=== PATIENT | male | born 1950 | race Caucasian/White ===

== ENCOUNTER 2021-11-08 12:28 | Emergency (ER) | payer MEDICARE ==
[~2021-11-08] VITALS: Ht 167.7 cm; Wt 72.6 kg
[2021-11-08 13:14] LABS: BASOPHILS % (AUTO) 0 % (0-10); EOSINOPHILS # (AUTO) 0.2 10^3/uL (0.0-0.3); EOSINOPHILS % (AUTO) 1 % (0-10); HEMATOCRIT 45 % (40-54); HEMOGLOBIN 14.3 g/dL (13.3-17.7); LYMPHOCYTES # (AUTO) 1.7 10^3/uL (1.0-4.0); LYMPHOCYTES % (AUTO) 14 % (12-44); MEAN CORPUSCULAR HEMOGLOBIN 28 pg (25-34); MEAN CORPUSCULAR HGB CONC 32 g/dL (32-36); MEAN CORPUSCULAR VOLUME 86 fL (80-99); MEAN PLATELET VOLUME 9.4 fL (9.0-12.2); MONOCYTES # (AUTO) 0.9 10^3/uL (0.0-1.0); MONOCYTES % (AUTO) 8 % (0-12); NEUTROPHILS # (AUTO) 9.4 10^3/uL (1.8-7.8); NEUTROPHILS % (AUTO) 77 % (42-75); PLATELET COUNT 417 10^3/uL (130-400); WHITE BLOOD COUNT 12.3 10^3/uL (4.3-11.0)
[2021-11-08] MEDS ORDERED: NS IV 1000 ML 1,000 ML IV SCH (13:15)
[2021-11-08 13:34] LABS: ALANINE AMINOTRANSFERASE 16 U/L (0-55); ALBUMIN 4.6 GM/DL (3.2-4.5); ALKALINE PHOSPHATASE 112 U/L (40-136); BILIRUBIN,TOTAL 0.5 MG/DL (0.1-1.0); BUN/CREATININE RATIO 10; CALCIUM 9.6 MG/DL (8.5-10.1); CARBON DIOXIDE 26 MMOL/L (21-32); CHLORIDE 105 MMOL/L (98-107); CREATININE SERUM 1.16 MG/DL (0.60-1.30); GFR ESTIMATED 67; GLUCOSE 128 MG/DL (70-105); SODIUM 144 MMOL/L (135-145); TOTAL PROTEIN 7.4 GM/DL (6.4-8.2)
--- NOTE | 2021-11-08 13:58 | Diagnostic Imaging Report ---
PROCEDURE: CT head without contrast. TECHNIQUE: Multiple contiguous axial images were obtained through the brain without the use of intravenous contrast. Auto Exposure Controls were utilized during the CT exam to meet ALARA standards for radiation dose reduction. INDICATION: Near syncope. COMPARISON: None available. FINDINGS: CT of the head demonstrates no evidence of an acute intracranial abnormality. There is no evidence of intracranial hemorrhage. There is no extra-axial fluid collection, mass effect or shift. Sharp and white matter differentiation appear preserved. There is no abnormal hypodensity within the basal ganglia. The ventricles are appropriate in size and configuration. There is no evidence of hydrocephalus. The basilar cisterns are patent. The posterior fossa is unremarkable. Mastoids and visualized paranasal sinuses appear clear. Orbital contents are unremarkable. There is no calvarial abnormality. IMPRESSION: 1. No CT evidence of an acute intracranial abnormality. Dictated by: Dictated on workstation # [id number]
--- NOTE | 2021-11-08 13:59 | Diagnostic Imaging Report ---
INDICATION: Near syncope. COMPARISON: None available. FINDINGS: The lungs appear clear without focal airspace opacities or consolidation. There are no findings of an effusion. There is no evidence of a pneumothorax. Heart size and mediastinal contours appear appropriate. Pulmonary vascularity appears within normal limits. There is no acute or suspicious osseous abnormality demonstrated. IMPRESSION: No radiographic evidence of an acute cardiopulmonary process. Dictated by: Dictated on workstation # [id number]
[2021-11-08 14:00] VITALS: BP_SYST 102; BP_SYST 105; BP_SYST 114; BP_DIAS 67; BP_DIAS 68; BP_DIAS 74
--- NOTE | 2021-11-08 15:04 | ED Syncope ---
General Chief Complaint: Dizziness/Syncope Stated Complaint: NEAR SYNCOPE Nursing Triage Note: Patient states he started mowing around 10 am today. He reports at 12 pm he suddenly felt as though he were going to pass out. Source of Information: Patient History of Present Illness Date Seen by Provider: Nov 08, 2021 Time Seen by Provider: 12:55 Initial Comments 71-year-old male patient with history of GERD and BPH brought in [facility] with complaining of near syncopal episode. Patient states he started mowing grass around 10 AM and around 1200 while talking with a friend felt flushed and li ghtheadedness without chest pain, shortness of breath, focal neurodeficit. Patient states he was able to sit down without having any fall and for couple minutes he was dizzy that resolved spontaneously without loss of consciousness. Patient states he had the same problem previously and was told he had vasovagal reaction. Patient's friend stated that he did not have a fall or loss of consciousness but was weak for few minutes and they decided to bring him to the emergency room. Allergies and Home Medications Allergies Coded Allergies: No Known Drug Allergies (Unverified , 11/08/21) Patient Home Medication List Home Medication List Reviewed: Yes Review of Systems Constitutional: weakness EENTM: no symptoms reported Respiratory: no symptoms reported Cardiovascular: see HPI Gastrointestinal: no symptoms reported Genitourinary: no symptoms reported Musculoskeletal: no symptoms reported Skin: no symptoms reported Psychiatric/Neurological: See HPI All Other Systems Reviewed Negative Unless Noted: Yes Past Zjhfhgt-Vubumm-Fqiihk Hx Patient Social History Tobacco Use?: No Substance use?: No Alcohol Use?: No Pt feels they are or have been: No Immunizations Up To Date 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 oz. kg; 25.00 BMI Method: General Appearance: No Apparent Distress HEENT: PERRL/EOMI, Normal ENT Inspection Neck: Full Range of Motion, Normal Inspection Cardiovascular: Regular Rate, Rhythm, No Edema, No Murmur, Normal Peripheral Pulses Respiratory: Chest Non Tender, Lungs Clear, Normal Breath Sounds, No Accessory Muscle Use, No Respiratory Distress Gastrointestinal: Normal Bowel Sounds, Non Tender, Soft Back: Normal Inspection Extremities: Normal Capillary Refill, Normal Inspection, Normal Range of Motion, Non Tender Neurologic/Psychiatric: Alert, Oriented x3, No Motor/Sensory Deficits, Normal Mood/Affect, senior product consultant II-XII Norm as Tested Cranial Nerves: Normal Hearing, Normal Speech, PERRL Motor/Sensory: No Motor Deficit, No Sensory Deficit Skin: Normal Color Progress/Results/Core Measures Results/Orders Lab Results Laboratory Tests Test 11/08/21 13:10 Range/Units White Blood Count 12.3 H 4.3-11.0 10^3/uL Red Blood Count 5.17 4.30-5.52 10^6/uL Hemoglobin 14.3 13.3-17.7 g/dL Hematocrit 45 40-54 % Mean Corpuscular Volume 86 80-99 fL Mean Corpuscular Hemoglobin 28 25-34 pg Mean Corpuscular Hemoglobin Concent 32 32-36 g/dL Red Cell Distribution Width 13.1 10.0-14.5 % Platelet Count 417 H 130-400 10^3/uL Mean Platelet Volume 9.4 9.0-12.2 fL Immature Granulocyte % (Auto) 1 % Neutrophils (%) (Auto) 77 H 42-75 % Lymphocytes (%) (Auto) 14 12-44 % Monocytes (%) (Auto) 8 0-12 % Eosinophils (%) (Auto) 1 0-10 % Basophils (%) (Auto) 0 0-10 % Neutrophils # (Auto) 9.4 H 1.8-7.8 10^3/uL Lymphocytes # (Auto) 1.7 1.0-4.0 10^3/uL Monocytes # (Auto) 0.9 0.0-1.0 10^3/uL Eosinophils # (Auto) 0.2 0.0-0.3 10^3/uL Basophils # (Auto) 0.0 0.0-0.1 10^3/uL Immature Granulocyte # (Auto) 0.1 0.0-0.1 10^3/uL D-Dimer 0.59 H 0.00-0.49 UG/ML Sodium Level 144 135-145 MMOL/L Potassium Level 4.0 3.6-5.0 MMOL/L Chloride Level 105 98-107 MMOL/L Carbon Dioxide Level 26 21-32 MMOL/L Anion Gap 13 5-14 MMOL/L Blood Urea Nitrogen 12 7-18 MG/DL Creatinine 1.16 0.60-1.30 MG/DL Estimat Glomerular Filtration Rate 67 BUN/Creatinine Ratio 10 Glucose Level 128 H 70-105 MG/DL Calcium Level 9.6 8.5-10.1 MG/DL Corrected Calcium 8.5-10.1 MG/DL Total Bilirubin 0.5 0.1-1.0 MG/DL Aspartate Amino Transf (AST/SGOT) 22 5-34 U/L Alanine Aminotransferase (ALT/SGPT) 16 0-55 U/L Alkaline Phosphatase 112 40-136 U/L Troponin I < 0.30 <0.30 NG/ML Total Protein 7.4 6.4-8.2 GM/DL Albumin 4.6 H 3.2-4.5 GM/DL My Orders Orders - DAVID ANTHONY MD Cbc With Automated Diff (11/08/21 13:04) Chest 1 View Ap/Pa Only (11/08/21 13:04) Ekg Tracing (11/08/21 13:04) Comprehensive Metabolic Panel (11/08/21 13:04) Monitor-Rhythm Ecg Trace Only (11/08/21 13:04) Ed Iv/Invasive Line Start (11/08/21 13:04) Troponin I Fs (11/08/21 13:04) Orthostatic Vital Signs (Adult (11/08/21 13:04) Ns Iv 1000 Ml (Sodium Chloride 0.9%) (11/08/21 13:15) Fibrin Degradation Products (11/08/21 13:04) Ct Head Wo (11/08/21 13:04) Creatine Kinase (11/08/21 13:10) Creatine Kinase Mb (11/08/21 13:10) Vital Signs/I&O 11/08/21 11/08/21 11/08/21 12:32 14:00 15:06 Temp 36.3 Pulse 78 67 75 73 86 Resp 20 14 B/P (MAP) 110/79 (89) 114/68 (83) 142/88 105/67 (80) 102/74 (83) Pulse Ox 98 97 O2 Delivery Room Air Room Air Blood Pressure Mean: 83 Progress Progress Note : Progress Note Evaluation of patient in ER showed 71-year-old male patient without history of cardiac problem brought in POV because of near syncopal episode without loss of consciousness. Patient had unremarkable physical exam and felt much better after 1 L of normal saline. Patient had unremarkable CBC and CMP and troponin and D-dimer except for mild leukocytosis of 12. EKG did not show acute finding. CT head and chest x-ray was unremarkable. Patient is from [place] and refused admission and he stated he had the same problem previously. Patient advised to increase fluid intake and call his primary care physician today for more cardiac work-up. Patient ambulated without problem at time of discharge. Initial ECG Impression Date: Nov 08, 2021 Initial ECG Impression Time: 13:04 Initial ECG Rhythm: Normal Sinus Initial ECG Intervals EKG interpreted by me. EKG at 1304 showed sinus rhythm at rate of 67, left axis deviation, low QRS voltage, incomplete right bundle branch block, Q waves in anterior leads, no acute ST and T wave elevation. Diagnostic Imaging Diagonstic Imaging: Xray (Chest), CT (Head) Comments CT head and 1 view chest x-ray interpreted by radiologist and reviewed by me and showed: [facility], [place] NAME: YUVAL VELEZ [facility] REC#: [id number] PT STATUS: REG ER : 1950 PHYSICIAN: DAVID ANTHONY MD ADMIT DATE: 11/08/21/ER FS Signed Date of Exam:11/08/21 CT HEAD WO PROCEDURE: CT head without contrast. TECHNIQUE: Multiple contiguous axial images were obtained through the brain without the use of intravenous contrast. Auto Exposure Controls were utilized during the CT exam to meet ALARA standards for radiation dose reduction. INDICATION: Near syncope. COMPARISON: None available. FINDINGS: CT of the head demonstrates no evidence of an acute intracranial abnormality. There is no evidence of intracranial hemorrhage. There is no extra-axial fluid collection, mass effect or shift. Sharp and white matter differentiation appear preserved. There is no abnormal hypodensity within the basal ganglia. The ventricles are appropriate in size and configuration. There is no evidence of hydrocephalus. The basilar cisterns are patent. The posterior fossa is unremarkable. Mastoids and visualized paranasal sinuses appear clear. Orbital contents are unremarkable. There is no calvarial abnormality. IMPRESSION: 1. No CT evidence of an acute intracranial abnormality. Dictated by: Dictated on workstation # [id number] Dict: 11/08/21 1356 Trans: 11/08/21 1357 [facility] [id number] Interpreted by: LEIGH CASAREZ MD Electronically signed by: LEIGH CASAREZ MD 11/08/21 1357 [facility], [place] NAME: YUVAL VELEZ [facility] REC#: [id number] PT STATUS: REG ER : 1950 PHYSICIAN: DAVID ANTHONY MD ADMIT DATE: 11/08/21/ER FS Signed Date of Exam:11/08/21 CHEST 1 VIEW AP/PA ONLY INDICATION: Near syncope. COMPARISON: None available. FINDINGS: The lungs appear clear without focal airspace opacities or consolidation. There are no findings of an effusion. There is no evidence of a pneumothorax. Heart size and mediastinal contours appear appropriate. Pulmonary vascularity appears within normal limits. There is no acute or suspicious osseous abnormality demonstrated. IMPRESSION: No radiographic evidence of an acute cardiopulmonary process. Dictated by: Dictated on workstation # [id number] Dict: 11/08/21 1357 Trans: 11/08/21 1358 [facility] [id number] Interpreted by: LEIGH CASAREZ MD Electronically signed by: LEIGH CASAREZ MD 11/08/21 1358 Departure Impression Primary Impression: Near syncope Additional Impression: Leukocytosis Qualified Codes: D72.829 - Elevated white blood cell count, unspecified Disposition: 01 HOME, SELF-CARE Condition: Improved Departure-Patient Inst. Decision time for Depature: 15:01 Referrals: NO,LOCAL PHYSICIAN (PCP/Family) Primary Care Physician Patient Instructions: Near Fainting Add. Discharge Instructions: Do not work outside today, do not drive today Drink plenty of liquids Follow-up with your doctor today for more heart evaluation You decided to not get admitted at hospital, return to the closest emergency room if you have any symptoms All discharge instructions reviewed with patient and/or family. Voiced understanding. DAVID ANTHONY MD Nov 08, 2021 15:03
[2021-11-08 15:06] VITALS: BP 142/88
[2021-11-08 21:27] LABS: CREATINE KINASE MB 2.9 NG/ML (<6.6)
== END 2021-11-08 15:07 | disposition home or self-care (01) ==
LOC: ER FS 12:30
DX: R55 Syncope and collapse (principal); D72.829 Elevated white blood cell count, unspecified; I45.10 Unspecified right bundle-branch block
CPT/HCPCS: 36415; 70450; 71045; 80053; 82550; 82553; 84484; 85025; 85379; 93005; 93041